=== PATIENT | female | born 2000 | race Caucasian/White ===

== ENCOUNTER 2019-02-28 00:15 | Emergency (ER) | payer BC ==
[~2019-02-28] VITALS: Ht 162.6 cm; Wt 49.9 kg
--- NOTE | 2019-02-28 00:15 | NUR ---
PT NELLA MCCLELLANDS. TAKEN TO BED 4
[2019-02-28 00:18] VITALS: BP 112/68
--- NOTE | 2019-02-28 00:20 | NUR ---
18 Y/O FEMALE, BIBA FROM [facility] DUE TO ETOH +N/V, PT ACCOMPANIED BY FRIEND, ANUP FROM [employer] ALSO HERE. PT STATED "I HAD DRANK A LITTLE TO MUCH OF VODKA AND BEER". PT AAOX4, NO MORE C/O N/V AT THIS TIME. RR EVEN UNLABORED, GCS 15. EDMD MADE AWARE, WILL CONTINUE TO MONITOR CLOSELY. BED LOCKED IN LOWEST POSITION, SIDERAILS UPX2. NKA DENIES PMH
--- NOTE | 2019-02-28 00:40 | NUR ---
Dr. Alfaro examining patient.
[2019-02-28 00:50] VITALS: BP 112/68
--- NOTE | 2019-02-28 00:50 | NUR ---
Patient discharged with v/s stable. Written and verbal after care instructions given and explained. Provided education regarding ETOH consumptions/intoxication. Patient verbalized understanding. Ambulatory with steady gait. All questions addressed prior to discharge. Patient accompanied by friend and school ANUP.
== END 2019-02-28 00:50 | disposition home or self-care (01) ==
LOC: MED 00:15
DX: F10.129 Alcohol abuse with intoxication, unspecified (principal)
CPT/HCPCS: 99283